=== PATIENT | male | born 1970 | race Caucasian/White ===

== ENCOUNTER → 2018-04-06 | Outpatient (REF) ==
--- NOTE | 2018-04-06 15:11 | REP ---
AP AND LATERAL CERVICAL SPINE, THREE VIEWS: HISTORY: Degenerative disc disease. There is no acute fracture or subluxation. The C5-6 and C6-7 intervertebral discs are decreased in height consistent with disc degeneration. Osteophytes are present on C3 through C7. IMPRESSION: Degenerative change as described above. Electronically Signed by Ky Mejia MD 04/06/2018 03:15 P
--- NOTE | 2018-04-06 15:13 | REP ---
LEFT KNEE, FIVE VIEWS: HISTORY: Degenerative joint disease. There is no acute fracture or dislocation. There is mild narrowing of the medial knee joint space and patellofemoral joint space. There is moderate narrowing of the lateral knee joint space. Osteophytes are present on the tibia, patella and femur. Calcified densities are present posterior to the knee joint space. These may represent ligamentous or tendon calcification or possibly loose bodies. IMPRESSION: Degenerative change as described above. Electronically Signed by Ky Mejia MD 04/06/2018 03:14 P
== END ==
LOC: M SMT 10:46
PROVIDERS: ATTEND Internal Medicine
DX: Z02.71 Encounter for disability determination (principal)